=== PATIENT | male | born 1985 | race Two or more races ===

== ENCOUNTER 2024-03-12 14:50 | Outpatient (AMB) | payer OTHER, SELFPAY ==
[2024-03-12 14:58] VITALS: BP 122/72; PULSE 76; O2SAT 97; BMI 36.4
--- NOTE | 2024-03-12 14:58 | MHC.PC.OV ---
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 He states it's been going on for four months. 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 No PCP in years Last office visit/CPE: years Acute issue(s): Fatigue & palpitations. H/o PreDM PMHx: Difficulty concentrating. PreDM SurgHx: Tonsils FHx: Mom: Hypothroidism, Seizure disorder. GF: Diabetes. SocHx: No Cigs, EtOH: None. No drugs PFSH Medical History (Updated 03/12/24 @ 15:55 by Eb Preston MD) Anxiety Palpitations Surgical History (Updated 03/12/24 @ 15:07 by Rhona Cole CMA) S/P tonsillectomy Family History (Updated 03/12/24 @ 15:09 by Rhona Cole CMA) Mother Thyroid disease Father Alcoholism Maternal Grandfather Diabetes Social History Patient Tobacco Use Status: Never used Tobacco e-Cigarette/Vaping Use: Never Used service: No Current occupational status: employed Cognitive needs: No Hearing needs: No Vision needs: No Questionnaire PHQ-9 Over the last 2 weeks, how often have you been bothered by any of the following problems? 1. Little interest or pleasure in doing things: not at all 2. Feeling down, depressed, or hopeless: not at all 3. Trouble falling or staying asleep, or sleeping too much: not at all 4. Feeling tired or having little energy: not at all 5. Poor appetite or overeating: not at all 6. Feeling bad about yourself - or that you are a failure or have let yourself or your family down: not at all 7. Trouble concentrating on things, such as reading the newspaper or watching television: not at all 8. Moving or speaking so slowly that other people could have noticed. Or the opposite - being so fidgety or restless that you have been moving around a lot more than usual: not at all 9. Thoughts that you would be better off or of hurting yourself in some way: not at all Total score: 0 Depression Screening Interpretation: Negative Depression Screening Done: Yes 65880 - PHQ-9 Billing: Yes Source: Developed by Drs. Geraldo Dyson, Aislinn Mcarthur, Fuentes Tipton and colleagues, with an educational jerald from [employer]. Thrive Questionnaire Date Thrive assessed: 03/12/24 I am a: Patient What is your living situation today?: I have a steady place to live Within the past 12 months, did the food you bought not last and you didn't have the money to get more?: Never true Within the past 12 months, did you worry whether your food would run out before you got money to buy more?: Never true Do you have trouble paying for medicines?: No Do you have trouble getting transportation to medical appointments?: No Do you have trouble paying your heating and electricity bill?: No Do you have trouble taking care of your child, family member or friend?: No Do you have trouble with day-to-day activities such as bathing, preparing meals, shopping, managing finances, etc.?: No Are you currently unemployed and looking for a job?: No Are you interested in more education?: No THRIVE Score: 0 AUDIT C Alcohol Use Questionnaire (AUDIT-C) 1. How often do you have a drink containing alcohol?: Never 3. How often do you have six or more drinks on one occasion?: Never Total Score: 0 BROOKE-7 AMB Questionnaire BROOKE-7 Date BROOKE - 7 assessed: 03/12/24 Feeling nervous, anxious, or on edge: 0 = Not at all Not being able to stop or control worryin = Not at all Worrying too much about different things: 0 = Not at all Trouble relaxin = Not at all Being so restless that it is hard to sit still: 0 = Not at all Becoming easily annoyed or irritable: 0 = Not at all Feeling afraid as if something awful might happen: 0 = Not at all Total BROOKE-7 score (0-4 normal; 5-9 mild; 10-14 moderate; 15-21 severe): 0 Source: Developed by Drs. Geraldo Dyson, Aislinn Mcarthur, Fuentes Tipton and colleagues, with an educational jerald from [employer]. BROOKE-7 Assessment Billing BROOKE-7 Assessment Tool: BROOKE-7 Assessment 22261 Review of Systems Const Denies chills, Reports fatigue, Denies fever(s), Denies headache(s) and Denies weakness ENT Denies dizziness and Denies headache(s) Card Denies chest pain, Denies lightheadedness, Denies dyspnea and Denies other (Palpitations) Resp Denies cough, Denies dyspnea, Denies wheezing and Denies other ( shortness of breath) Musc Denies numbness and Denies tingling Neuro Denies dizziness, Denies headache(s), Denies numbness, Denies tingling, Denies paresthesias and Denies weakness Psych Denies anxiety and Denies depression Endo Reports fatigue Aller/Immun Denies wheezing Physical exam (Primary Care) Vital Signs: Last Vital Signs Pulse 76 03/12/24 14:58 BP 122/72 03/12/24 14:58 Pulse Ox 97 03/12/24 14:58 Oxygen Delivery Method Room Air 03/12/24 14:58 BMI result Body Mass Index 36.4 Tobacco/Smoking Status: Tobacco use Status Tobacco use date assessed 03/12/24 03/12/24 15:14 Patient Tobacco Use Status Never used Tobacco 03/12/24 15:14 e-Cigarette/Vaping Use Never Used 03/12/24 15:14 PHQ-9: PHQ-9 Score PHQ-9: Total score 0 03/12/24 15:14 Depression Screening Interpretation: Negative Thrive Assessment: Date of Thrive Assessment Date Thrive assessed 03/12/24 03/12/24 15:14 Const General: no acute distress and well developed Nutritional Appearance: well nourished Orientation/consciousness: patient oriented x3 HENMT Head: Yes normocephalic and Yes atraumatic Eyes General: appearance normal, both eyes and all related structures Pupils: Equal, round and reactive pupils present EOM: EOMs intact bilaterally Resp Effort & Inspection: normal respiratory effort Auscultation: clear to auscultation bilaterally Cardio Rate: regular rate Rhythm: regular rhythm Heart sounds: S1 normal heart sound present, S2 normal heart sound present, no gallops, no murmurs and no rubs Neuro General: patient oriented x3 and gait normal Cranial nerves: Yes Equal, round and reactive pupils present Psych Affect: normal affect Assessment and Plan Assessment & Plan (1) Fatigue: Code(s): R53.83 - Other fatigue Plan: Fatigue?and?daytime?sleepiness?with?difficulty?staying?asleep/un?restful?sleep Referred?to?Sleep?Medicine (2) Herpes exposure: Code(s): Z20.828 - Contact with and (suspected) exposure to other viral communicable diseases Plan: Patient?says?he?was?exposed?to?herpes?last?year Check?labs (3) Palpitations: Code(s): R00.2 - Palpitations Plan: Palpitations?and?poor?sleep EKG: ?Normal?sinus?rhythm,?normal?axis,?normal?intervals,?no?hypertrophy,?no?ST-T-wave?changes.??Normal?EKG Referred?to?Sleep?Medicine Check?labs (4) Sleep apnea: Code(s): G47.30 - Sleep apnea, unspecified Plan: Referred?to?Sleep?Medicine Orders: Orders Complete Blood Count Auto Diff Today Z00.00 - Encounter for general adult medical examination without abnormal findings Lipid Panel Today Z00.00 - Encounter for general adult medical examination without abnormal findings TSH reflex Free T4 Today Z00.00 - Encounter for general adult medical examination without abnormal findings UA and rflx microscopic Today Z00.00 - Encounter for general adult medical examination without abnormal findings HSV I and II,IHC Today Z20.828 - Contact with and (suspected) exposure to other viral communicable diseases HIV Ab/Ag Today R53.83 - Other fatigue, Z11.3 - Encounter for screening for infections with a predominantly sexual mode of transmission Syphilis Screen Today R53.83 - Other fatigue, Z11.3 - Encounter for screening for infections with a predominantly sexual mode of transmission Hepatitis B,C Profile Today R53.83 - Other fatigue, Z11.3 - Encounter for screening for infections with a predominantly sexual mode of transmission Comprehensive [place]. Panel Fast Today Z00.00 - Encounter for general adult medical examination without abnormal findings Microalbumin, Random (w Creat) Today I10 - Essential (primary) hypertension AMB EKG-In Office Today R53.83 - Other fatigue Testosterone, Free/Total Today R53.83 - Other fatigue CT NG by PCR Today R53.83 - Other fatigue, Z11.3 - Encounter for screening for infections with a predominantly sexual mode of transmission Referrals Sleep Medicine Referral G47.30 - Sleep apnea, unspecified, R53.83 - Other fatigue Coding Level of Care Code New Pt Level 3 (39206) Diagnoses Fatigue R53.83 Herpes exposure Z20.828 Palpitations R00.2 Sleep apnea G47.30 Additional Codes BROOKE-7 Assessment Billing - BROOKE-7 Assessment Tool: BROOKE-7 Assessment 44248 ([id number])
== END 2024-03-12 16:38 | disposition home or self-care (01) ==
PROVIDERS: PCP Family Medicine; Visit Provider Family Medicine
DX: R53.83 Other fatigue (principal); Z20.828 Contact with and (suspected) exposure to other viral communicable diseases; R00.2 Palpitations; G47.30 Sleep apnea, unspecified
CPT/HCPCS: 99203

== ENCOUNTER 2024-03-13 11:53 | Outpatient (REF) | payer OTHER, SELFPAY ==
[2024-03-13 14:22] LABS: MANUAL DIFF FLAG NO
[2024-03-13 14:41] LABS: Basophils Percent Auto 0.3 % (0-2); Eosinophils Absolute Auto 0.4 X10*3/uL (0.0-0.4); Eosinophils Percent Auto 6.6 % (0-4); Hematocrit 45.4 % (42.0-52.0); Hemoglobin 15.7 g/dl (14.0-18.0); Imm Gran Abs Auto 0.01 X10*3/uL (0.00-0.03); Imm Gran Pct Auto 0.2 % (0.0-0.4); Lymphocytes Absolute Auto 1.5 X10*3/uL (1.2-4.9); Lymphocytes Percent Auto 26.2 % (20-40); Mean Corpuscular HGB Conc 34.6 g/dl (31.0-36.0); Mean Corpuscular Hemoglobin 30.4 pg (27.0-33.0); Mean Platelet Volume 8.9 fL (9.4-12.4); Monocytes Absolute Auto 0.4 X10*3/uL (0.1-1.2); Monocytes Percent Auto 7.1 % (2-11); Neutrophils Absolute Auto 3.4 x10*3/uL (2.0-8.3); Neutrophils Percent Auto 59.6 % (45-73); Platelet Count 281 X10*3/uL (160-400); Red Blood Count 5.16 X10*6/uL (4.60-5.80); Red Cell Distribution Width 11.9 % (11.0-16.0); White Blood Count 5.8 X10*3/uL (4.8-10.8)
[2024-03-13 14:50] LABS: Appearance Urine Clear; Color Urine Dark Yellow; Glucose Urine UA Negative (Negative); Leukocyte Esterase Urine Negative (Negative); Nitrite Urine Negative (Negative); PH 6.5 (5.0-9.0); Urine Blood Negative (Negative); Urine Ketones Negative (Negative); Urine Protein Negative (Neg-Trace)
[2024-03-13 15:22] LABS: Alanine Aminotransferase 81 U/L (0-40); Albumin Level 4.2 g/dL (3.5-5.0); Alkaline Phosphatase 69 U/L (39-117); Anion Gap 12 (12-20); Aspartate Amino Transferase 33 U/L (5-37); Bilirubin Total 0.5 mg/dL (0.0-1.0); Blood Urea Nitrogen 7 mg/dL (9-16); Calcium 9.4 mg/dL (8.4-10.2); Carbon Dioxide 29 mmol/L (22-29); Chloride 105 mmol/L (96-108); Cholesterol 177 mg/dL (<200); Estimated Glomerular Filt Rate > 60; Glucose Fasting 93 mg/dL (60-99); HDL Cholesterol 50 mg/dL (>40); LDL Cholesterol Calculated 119 mg/dL (<100); Potassium 3.9 mmol/L (3.3-5.1); Sodium 142 mmol/L (135-145); Triglycerides 44 mg/dL (<150)
[2024-03-13 15:26] LABS: TSH reflex Free T4 2.35 uIU/mL (0.32-4.0)
[2024-03-13 15:43] LABS: Creatinine Urine 156.61 mg/dL; Microalbum/Creatinine Ratio Ur 5.1 ug/mg cr (<30)
[2024-03-14 08:05] LABS: HBS Num1 > 1000.00 mIU/mL (0-7.99); HBc Num1 0.19 S/CO (0.00-0.79); HBsAGNum1 0.28 S/CO (0.00-0.99); HIV AB/AG Nonreactive (Nonreactive); HIV Num 1 0.04 S/CO (0.00-0.99); Hepatitis B Core Antibody Nonreactive (Nonreactive); Hepatitis B Surface Antigen Negative (Negative); ~HepC Num1 0.08 S/CO (0.00-0.79); ~Hepatitis B Surface Antibody REACTIVE (Nonreactive); ~Hepatitis C Antibody Nonreactive (Nonreactive)
[2024-03-14 08:22] LABS: Syphilis Screen Nonreactive (Nonreactive)
== END 2024-03-13 11:54 | disposition home or self-care (01) ==
LOC: HO.WFDLDS 11:53
PROVIDERS: Visit Provider Family Medicine
DX: Z00.00 Encounter for general adult medical examination without abnormal findings (principal); I10 Essential (primary) hypertension; R53.83 Other fatigue; Z20.828 Contact with and (suspected) exposure to other viral communicable diseases; Z11.3 Encounter for screening for infections with a predominantly sexual mode of transmission
CPT/HCPCS: 36415; 80053; 80061; 81003; 82043; 82570; 84443; 85025; 86695; 86696; 86704; 86706; 86780; 86803; 87340; 87389

== ENCOUNTER → 2024-03-22 14:48 | Outpatient (AMB) | payer OTHER, SELFPAY ==
--- NOTE | 2024-03-22 13:55 | MHC.PC.OV ---
Intake Visit Reasons: Discuss recent labs/ medication options Intake Note: Patient is scheduled follow up on labs today, would like to talk about liver results, and what to do to feel better, and talk HPV treatment. Allergies No Known Allergies Allergy (Unverified 03/12/24 15:01) Tobacco use date assessed: 03/12/24 Dental Screening Dental Screen Date: 03/12/24 HPI Discuss recent labs/ medication options HPI Details 38 y/o male presents to f/u labs via telemedicine. Labs were drawn 03/13/24. Reviewed labs with pt. Elevated liver enzymes - ALT 81. Triglycerides 44. TC 177. LDL 119. HDL 50. HPI Comments History of Present Illness Details Documentation assistance for Eb Preston MD, was provided by Tavares Garcia, Underwriting Operations Manager on 03/22/2024 at 4:53 PM EST. I, Dr. Preston, have read, observed, and verified documentation. [facility] Medical History (Updated 03/22/24 @ 16:20 by Tavares Garcia) Anxiety Palpitations Surgical History (Updated 03/12/24 @ 15:07 by Rhona Cole [facility]) S/P tonsillectomy Family History (Updated 03/12/24 @ 15:09 by Rhona Cole [facility]) Mother Thyroid disease Father Alcoholism Maternal Grandfather Diabetes Social History Patient Tobacco Use Status: Never used Tobacco e-Cigarette/Vaping Use: Never Used service: No Current occupational status: employed Cognitive needs: No Hearing needs: No Vision needs: No Questionnaire Thrive Questionnaire Date Thrive assessed: 03/12/24 BROOKE-7 AMB Questionnaire BROOKE-7 Date BROOKE - 7 assessed: 03/12/24 Source: Developed by Drs. Geraldo Dyson, Aislinn Mcarthur, Fuentes Tipton and colleagues, with an educational jerald from [employer] Review of Systems Const Denies chills, Denies fatigue, Denies fever(s), Denies headache(s) and Denies weakness ENT Denies dizziness and Denies headache(s) Card Denies dyspnea Resp Denies cough, Denies dyspnea, Denies wheezing and Denies other (shortness of breath) Musc Denies numbness and Denies tingling Neuro Denies dizziness, Denies headache(s), Denies numbness, Denies tingling and Denies weakness Psych Denies anxiety and Denies depression Endo Denies fatigue Aller/Immun Denies wheezing Physical exam (Primary Care) Tobacco/Smoking Status: Tobacco use Status Tobacco use date assessed 03/12/24 03/22/24 13:55 Patient Tobacco Use Status Never used Tobacco 03/22/24 13:55 e-Cigarette/Vaping Use Never Used 03/22/24 13:55 Thrive Assessment: Date of Thrive Assessment Date Thrive assessed 03/12/24 03/22/24 13:55 Telehealth Telehealth Telehealth Platform: Telephone Location of provider rendering services: practice address Location of patient: address on file Patient Identification confirmed using: Name, : Yes Telehealth method: voice only Patient verbally consented to treatment: Yes Patient verbally consented to billing insurance company: Yes Patient informed of any privacy concerns related to visit: Yes Minutes spent on Phone/Video with Pt.: 11 Assessment and Plan Assessment & Plan (1) Elevated liver enzymes: Code(s): R74.8 - Abnormal levels of other serum enzymes Plan: Elevated?ALT Likely?fatty?liver?disorder Advised?weight?loss?and?he?is?already?been?working?on?this. Advised?good?hydration Will?recheck?liver?enzymes?prior?to?next?visit?and?if?they?are?the?same?or?higher,?will?check?an?ultrasound (2) Hypercholesterolemia: Code(s): E78.00 - Pure hypercholesterolemia, unspecified Plan: Mildly?elevated?LDL?cholesterol?and?he?is?working?on?weight?loss Also?encouraged?a?diet?lower?in?saturated?fats?and?cholesterol Will?recheck?these?and?advise?patient?at?next?visit (3) Herpes exposure: Code(s): Z20.828 - Contact with and (suspected) exposure to other viral communicable diseases Plan: Patient?had?noted?an?HSV?exposure?and?testing?confirms?HSV?1?and?2 He?is?sexually?active?and?would?like?to?use?a?suppressive?the?strategy Valacyclovir?is?ordered Plan He?will?return?in?3?months?to?follow-up?elevated?liver?enzymes,?hyperlipidemia?and?weight. Orders: Orders Comprehensive [place]. Panel Fast Today R74.8 - Abnormal levels of other serum enzymes, Z00.00 - Encounter for general adult medical examination without abnormal findings Lipid Panel Today E78.00 - Pure hypercholesterolemia, unspecified, Z00.00 - Encounter for general adult medical examination without abnormal findings Medications: New valacyclovir 500 mg PO DAILY 90 days 90 tabs 3RF Coding Level of Care Code Tele Est Pt Level 2 (64422) Diagnoses Elevated liver enzymes R74.8 Hypercholesterolemia E78.00 Herpes exposure Z20.828
== END ==
PROVIDERS: PCP Family Medicine; Visit Provider Family Medicine
DX: R74.8 Abnormal levels of other serum enzymes (principal); E78.00 Pure hypercholesterolemia, unspecified; Z20.828 Contact with and (suspected) exposure to other viral communicable diseases
CPT/HCPCS: 99212

== ENCOUNTER 2024-07-05 11:47 | Outpatient (REF) | payer OTHER, SELFPAY ==
[2024-07-05 14:49] LABS: Alanine Aminotransferase 48 U/L (0-40); Albumin Level 4.5 g/dL (3.5-5.0); Alkaline Phosphatase 65 U/L (39-117); Anion Gap 11 (12-20); Aspartate Amino Transferase 30 U/L (5-37); Bilirubin Total 0.6 mg/dL (0.0-1.0); Blood Urea Nitrogen 7 mg/dL (9-16); Calcium 9.7 mg/dL (8.4-10.2); Carbon Dioxide 29 mmol/L (22-29); Chloride 104 mmol/L (96-108); Cholesterol 171 mg/dL (<200); Estimated Glomerular Filt Rate > 60; Glucose Fasting 95 mg/dL (60-99); HDL Cholesterol 47 mg/dL (>40); LDL Cholesterol Calculated 112 mg/dL (<100); Potassium 3.8 mmol/L (3.3-5.1); Sodium 140 mmol/L (135-145); Total Protein 7.2 g/dL (6.5-8.0); Triglycerides 62 mg/dL (<150)
[2024-07-11 01:29] LABS: Testosterone, Free 73.7 pg/mL (35.0-155.0); Testosterone, Total 491 ng/dL (250-1100)
== END 2024-07-05 11:48 | disposition home or self-care (01) ==
LOC: HO.WFDLDS 11:47
PROVIDERS: Visit Provider Family Medicine
DX: Z00.00 Encounter for general adult medical examination without abnormal findings (principal); R53.83 Other fatigue; R74.8 Abnormal levels of other serum enzymes; E78.00 Pure hypercholesterolemia, unspecified
CPT/HCPCS: 36415; 80053; 80061; 84402; 84403

== ENCOUNTER 2024-07-16 12:03 | Outpatient (AMB) | payer OTHER, SELFPAY ==
[2024-07-16 12:08] VITALS: BP 118/66; PULSE 71; RESP 14; O2SAT 98; BMI 35.3
--- NOTE | 2024-07-16 12:08 | MHC.PC.OV ---
Vital Signs 07/16/24 12:08 Height 5 ft 5 in Weight 212 lb 4 oz BMI 35.3 BP 118/66 Blood Pressure Location Rt brachial Position Sitting Respiration 14 Pulse 71 Pulse Source Pulse Oximeter Pulse Oximetry (%) 98 Oxygen Delivery Method Room Air Intake Visit Reasons: Ext exam f/u labs and health maint Intake Note: patient here for physical Allergies No Known Allergies Allergy (Verified 07/16/24 12:09) Medication List - Last Reconciled 07/16/24 by DEVI Teixeira No Known Home Meds Tobacco use date assessed: 03/12/24 Dental Screening Dental Screen Date: 07/16/24 Did you have a dental visit in the last 12 months?: No Did you have a dental problem in the last 6 months where you did not have access to dental care?: No Was dental information given to patient?: No HPI HPI Comments History of Present Illness Details 39 y/o M with obesity, HLD, HSV1&2, fatty liver, BROOKE, MDD 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 Reports that when he takes them he feels great. One week after stopping he does not. He also reports a high buy-oa-mkutcj cost for these supplements and wonders if they can be prescribed. Has never had a Urology or endocrinology workup for low testosterone. He reports that he did a home blood test and his testosterone levels were low. Since last office visit, he has adjusted his lifestyle, diet and exercise, intentional weight loss. In regards to his mood, feels like it is stable, he has not counseling in the past, not currently enrolled and does not feel like he needs any medications or counseling. RTO 1 year for CPE, sooner as needed. [facility] Medical History (Updated 07/16/24 @ 14:45 by DEVI Teixeira) Anxiety Palpitations Surgical History (Updated 03/12/24 @ 15:07 by Rhona Cole [facility]) S/P tonsillectomy Family History (Updated 07/16/24 @ 12:10 by Sal Mehta MA) Mother Thyroid disease Father Alcoholism Substance abuse Maternal Grandfather Diabetes Social History (Updated 07/16/24 @ 12:13 by Sal Mehta MA) Household Members: None Both parents involved: No Caregiver staying overnight: No Housing: Apartment Are you a primary resident care coordinator to a significant other at home: No Do you presently have visiting nurse or other home services: No 75 years or older and lives alone: No Alcohol intake: never Patient Tobacco Use Status: Never used Tobacco e-Cigarette/Vaping Use: Never Used service: No Current occupational status: employed Cognitive needs: No Hearing needs: No Vision needs: No Questionnaire PHQ-9 Over the last 2 weeks, how often have you been bothered by any of the following problems? 1. Little interest or pleasure in doing things: not at all 2. Feeling down, depressed, or hopeless: not at all 3. Trouble falling or staying asleep, or sleeping too much: nearly every day 4. Feeling tired or having little energy: nearly every day 5. Poor appetite or overeating: not at all 6. Feeling bad about yourself - or that you are a failure or have let yourself or your family down: not at all 7. Trouble concentrating on things, such as reading the newspaper or watching television: nearly every day 8. Moving or speaking so slowly that other people could have noticed. Or the opposite - being so fidgety or restless that you have been moving around a lot more than usual: not at all 9. Thoughts that you would be better off or of hurting yourself in some way: not at all Total score: 9 Depression Screening Interpretation: Positive Depression Screening Follow-up: Existing condition Depression Screening Done: Yes 07116 - PHQ-9 Billing: Yes Source: Developed by Drs. Geraldo Dyson, Aislinn Mcarthur, Fuentes Tipton and colleagues, with an educational jerald from [employer]. Thrive Questionnaire Date Thrive assessed: 07/16/24 I am a: Patient What is your living situation today?: I have a steady place to live Within the past 12 months, did the food you bought not last and you didn't have the money to get more?: Never true Within the past 12 months, did you worry whether your food would run out before you got money to buy more?: Never true Do you have trouble paying for medicines?: No Do you have trouble getting transportation to medical appointments?: No Do you have trouble paying your heating and electricity bill?: No Do you have trouble taking care of your child, family member or friend?: No Do you have trouble with day-to-day activities such as bathing, preparing meals, shopping, managing finances, etc.?: No Are you currently unemployed and looking for a job?: No Are you interested in more education?: No Currently or been in a relationship where the following occur: No concerns reported THRIVE Score: 0 AUDIT C Alcohol Use Questionnaire (AUDIT-C) 1. How often do you have a drink containing alcohol?: Never 3. How often do you have six or more drinks on one occasion?: Never Total Score: 0 Score Reviewed/Action Taken: Yes BROOKE-7 AMB Questionnaire BROOKE-7 Date BROOKE - 7 assessed: 07/16/24 Feeling nervous, anxious, or on edge: 1 = Several days Not being able to stop or control worryin = More than half the days Worrying too much about different things: 3 = Nearly every day Trouble relaxin = Several days Being so restless that it is hard to sit still: 1 = Several days Becoming easily annoyed or irritable: 0 = Not at all Feeling afraid as if something awful might happen: 1 = Several days Total BROOKE-7 score (0-4 normal; 5-9 mild; 10-14 moderate; 15-21 severe): 9 Source: Developed by Drs. Geraldo Dyson, Aislinn Mcarthur, Fuentes Tipton and colleagues, with an educational jerald from [employer]. BROOKE-7 Assessment Billing BROOKE-7 Assessment Tool: BROOKE-7 Assessment 67884 Review of Systems Const Details: Constitutional: Denies fever. Skin: Denies rash. Eye: Denies eye pain. ENMT: Denies sore throat and nasal congestion. Respiratory: Denies shortness of breath and cough. Gastrointestinal: Denies nausea, vomiting or abdominal pain. Cardiovascular: Denies chest pain and syncope. Genitourinary: Denies dysuria. Musculoskeletal: Denies back pain and extremity pain. Neurologic: Denies headaches, confusion, and weakness. Psychiatric: Denies suicidal thoughts and substance abuse. Allergy/ Immunologic: Denies impaired immunity. Physical exam (Primary Care) Vital Signs: Last Vital Signs Pulse 71 07/16/24 12:08 Resp 14 07/16/24 12:08 BP 118/66 07/16/24 12:08 Pulse Ox 98 07/16/24 12:08 Oxygen Delivery Method Room Air 07/16/24 12:08 BMI result Body Mass Index 35.3 BMI Assessment/Plan discussion: High BMI High, discussed plan: lifestyle Tobacco/Smoking Status: Tobacco use Status Tobacco use date assessed 03/12/24 07/16/24 12:11 Patient Tobacco Use Status Never used Tobacco 07/16/24 12:13 e-Cigarette/Vaping Use Never Used 07/16/24 12:13 PHQ-9: PHQ-9 Score PHQ-9: Total score 9 07/16/24 14:36 Depression Screening Interpretation: Positive Depression Screening Follow-up: Existing condition Thrive Assessment: Date of Thrive Assessment Date Thrive assessed 07/16/24 07/16/24 12:16 Currently or been in a relationship where the following occur: No concerns reported Const Other: General: Well developed, well nourished, in no acute distress. Appears stated age. Head: Normocephalic, atraumatic. Eyes: Pupils are equal, round and reactive to light and accommodation. Conjunctivae are clear. Vision grossly normal. Ears: TMs clear AU, EACS WNL Nose: Patent, without discharge. Mouth: There are no ulcers or lesions noted. No inflammation, no post nasal drip, no plaques nor exudates. Neck: Supple, no adenopathy or thyromegaly. Lungs: Clear to auscultation bilaterally. No rales, rhonchi or wheeze noted. Good air flow in all linares. Heart: Regular rate and rhythm. No murmurs, click, rubs or gallops are noted. Abdomen: Bowel sounds present in all quadrants. The abdomen is soft, nontender, with no masses or organomegaly noted. No hernias are noted. Musculoskeletal: Joints are nontender, without swelling, redness, or effusions. Range of motion is observed to be normal. Pulses: Peripheral pulses are equal and palpable bilaterally. Extremities: No clubbing, cyanosis nor edema is noted. Neurologic: Gait and station normal. Cranial Nerves 2-12 intact. Motor strength grossly symmetrical and intact. No sensory loss. Balance normal. Skin: No rashes, ulcers, or lesions noted. Turgor is good. Skin color is good. Hair and nails are without abnormalities. Psych: Normal eye contact, affect and mood appropriate, and normal interactions. Patient is alert and appropriate to context. Assessment and Plan Assessment & Plan (1) Encounter for general adult medical examination without abnormal findings: Code(s): Z00.00 - Encounter for general adult medical examination without abnormal findings (2) Fatigue: Code(s): R53.83 - Other fatigue Qualifiers: Fatigue type: chronic, unspecified Qualified Code(s): R53.82 - Chronic fatigue, unspecified (3) Low testosterone in male: Comment: subjective Code(s): R79.89 - Other specified abnormal findings of blood chemistry (4) MDD (major depressive disorder), recurrent episode: Code(s): F33.9 - Major depressive disorder, recurrent, unspecified Qualifiers: Major depression episode severity: mild Qualified Code(s): F33.0 - Major depressive disorder, recurrent, mild (5) BROOKE (generalized anxiety disorder): Code(s): F41.1 - Generalized anxiety disorder (6) Fatty liver: Code(s): K76.0 - Fatty (change of) liver, not elsewhere classified (7) Elevated liver enzymes: Code(s): R74.8 - Abnormal levels of other serum enzymes (8) Hypercholesterolemia: Code(s): E78.00 - Pure hypercholesterolemia, unspecified (9) Herpes simplex: Comment: 1&2 06/2024 labs, was on suppressive acylovir but stopped taking Code(s): B00.9 - Herpesviral infection, unspecified (10) Severe obesity (BMI 35.0-39.9) with comorbidity: Comment: with HLD and fatty liver bmi > 35 Code(s): E66.01 - Morbid (severe) obesity due to excess calories Orders: Referrals Urology Referral R53.83 - Other fatigue, R79.89 - Other specified abnormal findings of blood chemistry Patient Instructions: Health screenings for men ages 40 to 64 You should visit your health care provider regularly, even if you feel healthy. The purpose of these visits is to: Screen for medical issues Assess your risk for future medical problems Encourage a healthy lifestyle Update vaccinations and other preventive care services Help you get to know your provider in case of an illness Information Even if you feel fine, you should still see your provider for regular checkups. These visits can help you avoid problems in the future. For example, the only way to find out if you have high blood pressure is to have it checked regularly. High blood sugar and high cholesterol level also may not have any symptoms in the early stages. Simple blood tests can check for these conditions. There are specific times when you should see your provider or receive specific health screenings. The [place] Preventive Services Task Force publishes a list of recommended screenings. Below are screening guidelines for men ages 40 to 64. BLOOD PRESSURE SCREENING Have your blood pressure checked at least once every year. Watch for blood pressure screenings in your area. Ask your provider if you can stop in to have your blood pressure checked. Ask your provider if you need your blood pressure checked more often if: You have diabetes, heart disease, kidney problems, or are overweight or have certain other health conditions You have a first-degree relative with high blood pressure You are Black Your blood pressure top number is from 120 to 129 mm Hg, or the bottom number is from 70 to 79 mm Hg If the top number is 130 mm Hg or greater or the bottom number is 80 mm Hg or greater, this is considered stage 1 hypertension. Schedule an appointment with your provider to learn how you can lower your blood pressure. Effects of age on blood pressure CHOLESTEROL SCREENING Cholesterol screening should begin at age 35 for men with no known risk factors for coronary heart disease. Repeat cholesterol screening should take place: Every 5 years for men with normal cholesterol levels More often if changes occur in lifestyle (including weight gain and diet) More often if you have diabetes, heart disease, kidney problems, or certain other conditions COLORECTAL CANCER SCREENING If you are under age 45, talk to your provider about getting screened. You may need to be screened if you have a strong family history of colon cancer or polyps. Screening may also be considered if you have risk factors such as a history of inflammatory bowel disease or polyps. If you are age 45 to 75, you should be screened for colorectal cancer. There are several screening tests available: A stool-based fecal occult blood (gFOBT) or fecal immunochemical test (FIT) every year A stool sDNA test every 1 to 3 years Flexible sigmoidoscopy every 5 years or every 10 years with stool testing FIT done every year CT colonography (virtual colonoscopy) every 5 years Colonoscopy every 10 years You may need a colonoscopy more often if you have risk factors for colorectal cancer, such as: Ulcerative colitis A personal or family history of colorectal cancer A history of growths in your colon called adenomatous polyps DENTAL EXAM Go to the dentist once or twice every year for an exam and cleaning. Your dentist will evaluate if you have a need for more frequent visits. DIABETES SCREENING All adults who do not have risk factors for diabetes should be screened starting at age 35 and repeated every 3 years. If you have other risk factors for diabetes, such as a first degree relative with diabetes, overweight or obesity, high blood pressure, prediabetes, or a history of heart disease, you may be tested more often. If you are overweight and have other risk factors, such as high blood pressure and are planning to become , screening is recommended. EYE EXAM Have an eye exam every 2 to 4 years ages 40 to 54 and every 1 to 3 years ages 55 to 64. Your provider may recommend more frequent eye exams if you have vision problems or glaucoma risk. Have an eye exam that includes an examination of your retina (back of your eye) at least every year if you have diabetes. IMMUNIZATIONS Commonly needed vaccines include: Flu shot: get one every year COVID-19 vaccine: ask your provider what is best for you Tetanus-diphtheria and acellular pertussis (Tdap) vaccine: have as one of your tetanus-diphtheria vaccines if you did not receive it as an adolescent Tetanus-diphtheria: have a booster (or Tdap) every 10 years Varicella vaccine: receive 2 doses if you never had chickenpox or the varicella vaccine and were born in 1979 or after Hepatitis B vaccine: receive 2, 3, or 4 doses, depending on your exact circumstances, if you did not receive these as a child or adolescent, until age 59 Shingles (herpes zoster) vaccine: at or after age 50 Ask your provider if you should receive other immunizations, especially if you have certain medical conditions, such as diabetes or are at increased risk for some diseases such as pneumonia. INFECTIOUS DISEASE SCREENING Screening for hepatitis C: all adults ages 18 to 79 should get a one-time test for hepatitis C. Screening for human immunodeficiency virus (HIV): all people ages 15 to 65 should get a one-time test for HIV. Depending on your lifestyle and medical history, you may need to be screened for infections such as syphilis, chlamydia, and other infections. LUNG CANCER SCREENING You should have an annual screening for lung cancer with low-dose computed tomography (LDCT) if: You are age 50 to 80 years AND You have a 20 pack-year smoking history AND You currently smoke or have quit within the past 15 years OSTEOPOROSIS SCREENING If you are age 50 to 64 and have risk factors for osteoporosis, you should discuss screening with your provider. Risk factors can include long-term steroid use, low body weight, smoking, heavy alcohol use, having a fracture after age 50, or a family history of hip fracture or osteoporosis. Osteoporosis PHYSICAL EXAM All adults should visit their provider from time to time, even if they are healthy. The purpose of these visits is to: Screen for diseases Assess risk of future medical problems Encourage a healthy lifestyle Update vaccinations and other preventive care services Maintain a relationship with a provider in case of an illness Your height, weight, and body mass index (BMI) should be checked at every exam. During your exam, your provider may ask you about: Depression and anxiety Diet and exercise Alcohol and tobacco use Safety, such as use of seat belts and smoke detectors Your medicines and risk for interactions PROSTATE CANCER SCREENING If you're 55 through 69 years old, before having the test, talk to your provider about the pros and cons of having a PSA test. Ask about: Whether screening decreases your chance of dying from prostate cancer. Whether there is any harm from prostate cancer screening, such as side effects from testing or overtreatment of cancer when discovered. Whether you have a higher risk of prostate cancer than others. If you are age 55 or younger, screening is not generally recommended. You should talk with your provider about if you have a higher risk for prostate cancer. Risk factors include: Having a family history of prostate cancer (especially a brother or father) Being If you choose to be tested, the PSA blood test is repeated over time (yearly or less often), though the best frequency is not known. Prostate examinations are no longer routinely done on men with no symptoms. Prostate cancer SKIN EXAM Your provider may check your skin for signs of skin cancer, especially if you're at high risk. People at high risk include those who have had skin cancer before, have close relatives with skin cancer, or have a weakened immune system. TESTICULAR EXAM The [place] Preventive Services Task Force (USPSTF) now recommends against performing testicular self-exams. Doing testicular self-exams has been shown to have little to no benefit. Review Flu Vaccine not done: patient reason Declined TDap/Td: 07/16/24 Coding Level of Care Code Est Pt Prev Care 18-39y(10637) Diagnoses Encounter for general adult medical examination without abnormal findings Z00.00 Chronic fatigue R53.82 Fatigue type: chronic, unspecified Low testosterone in male R79.89 Mild episode of recurrent major depressive disorder F33.0 Major depression episode severity: mild BROOKE (generalized anxiety disorder) F41.1 Fatty liver K76.0 Elevated liver enzymes R74.8 Hypercholesterolemia E78.00 Herpes simplex B00.9 Severe obesity (BMI 35.0-39.9) with comorbidity E66.01 Additional Codes BROOKE-7 Assessment Billing - BROOKE-7 Assessment Tool: BROOKE-7 Assessment 42343 ([id number])
== END 2024-07-16 12:39 | disposition home or self-care (01) ==
PROVIDERS: PCP Family Medicine; Visit Provider Nurse Practitioner Family
DX: Z00.00 Encounter for general adult medical examination without abnormal findings (principal); F33.0 Major depressive disorder, recurrent, mild; E66.01 Morbid (severe) obesity due to excess calories; Z68.35 Body mass index [BMI] 35.0-35.9, adult; R53.82 Chronic fatigue, unspecified; R79.89 Other specified abnormal findings of blood chemistry; F41.1 Generalized anxiety disorder; K76.0 Fatty (change of) liver, not elsewhere classified; R74.8 Abnormal levels of other serum enzymes; E78.00 Pure hypercholesterolemia, unspecified; B00.9 Herpesviral infection, unspecified

== ENCOUNTER → 2024-07-16 12:03 | Outpatient (BNVA) | payer OTHER, SELFPAY | PROVIDERS: PCP Family Medicine; Visit Provider Nurse Practitioner Family | DX: Z00.01 Encounter for general adult medical examination with abnormal findings (principal); R79.89 Other specified abnormal findings of blood chemistry; F33.0 Major depressive disorder, recurrent, mild; F41.1 Generalized anxiety disorder; K76.0 Fatty (change of) liver, not elsewhere classified; R74.8 Abnormal levels of other serum enzymes; E78.00 Pure hypercholesterolemia, unspecified; B00.9 Herpesviral infection, unspecified; E66.01 Morbid (severe) obesity due to excess calories | CPT/HCPCS: 96127; 99395 ==

== ENCOUNTER 2025-01-24 11:46 | Outpatient (AMB) | payer OTHER, SELFPAY ==
--- NOTE | 2025-01-24 12:12 | A.OFFPC_ITS ---
Vital Signs 01/24/25 12:13 Height 5 ft 5 in Weight 219 lb 6 oz BMI 36.5 BP 110/70 Blood Pressure Location Lt brachial Position Sitting Respiration 12 Pulse 72 Pulse Source Pulse Oximeter Temp 98.7 F Temp Source Oral Pulse Oximetry (%) 99 Oxygen Delivery Method Room Air Intake Visit Reasons: F/u visit /Weight Check Intake Note: patient is here for weight mngt Medical Professionals Required: No Allergies No Known Allergies Allergy (Verified 01/24/25 12:13) Medication List - Last Reconciled 01/24/25 by Eb Preston MD No Known Home Meds Tobacco use date assessed: 03/12/24 Dental Screening Dental Screen Date: 07/16/24 HPI F/u visit /Weight Check HPI Details 39 y/o male presents to f/u obesity. Weight today 219lb, BMI 36.5, increased from June. He notes he has started working out again at the gym. Reports daytime fatigue/sleepiness. [facility] Medical History (Updated 01/24/25 @ 12:26 by Tavares Garcia) Anxiety Palpitations Surgical History (Updated 03/12/24 @ 15:07 by Rhona Cole CMA) S/P tonsillectomy Family History (Updated 07/16/24 @ 12:10 by Sal Mehta MA) Mother Thyroid disease Father Alcoholism Substance abuse Maternal Grandfather Diabetes Social History (Updated 07/16/24 @ 12:13 by Sal Mehta MA) Household Members: None Both parents involved: No Caregiver staying overnight: No Housing: Apartment Are you a primary care director rn to a significant other at home: No Do you presently have visiting nurse or other home services: No 75 years or older and lives alone: No Alcohol intake: never Patient Tobacco Use Status: Never used Tobacco e-Cigarette/Vaping Use: Never Used service: No Current occupational status: employed Cognitive needs: No Hearing needs: No Vision needs: No Questionnaire PHQ-9 Over the last 2 weeks, how often have you been bothered by any of the following problems? 1. Little interest or pleasure in doing things: several days 2. Feeling down, depressed, or hopeless: several days 3. Trouble falling or staying asleep, or sleeping too much: several days 4. Feeling tired or having little energy: several days 5. Poor appetite or overeating: nearly every day 6. Feeling bad about yourself - or that you are a failure or have let yourself or your family down: several days 7. Trouble concentrating on things, such as reading the newspaper or watching television: nearly every day 8. Moving or speaking so slowly that other people could have noticed. Or the opposite - being so fidgety or restless that you have been moving around a lot more than usual: not at all 9. Thoughts that you would be better off or of hurting yourself in some way: not at all Total score: 11 Source: Developed by Drs. Geraldo Dyson, Aislinn Mcarthur, Fuentes Tipton and colleagues, with an educational jerald from [employer]. Thrive Questionnaire Date Thrive assessed: 07/16/24 I am a: Patient What is your living situation today?: I choose not to answer this question Within the past 12 months, did the food you bought not last and you didn't have the money to get more?: I choose not to answer this question Within the past 12 months, did you worry whether your food would run out before you got money to buy more?: I choose not to answer this question Do you have trouble paying for medicines?: I choose not to answer this question Do you have trouble getting transportation to medical appointments?: I choose not to answer this question Do you have trouble paying your heating and electricity bill?: I choose not to answer this question Do you have trouble taking care of your child, family member or friend?: I choose not to answer this question Do you have trouble with day-to-day activities such as bathing, preparing meals, shopping, managing finances, etc.?: I choose not to answer this question Are you currently unemployed and looking for a job?: I choose not to answer this question Are you interested in more education?: I choose not to answer this question Please select the resources that you would like help with: None Currently or been in a relationship where the following occur: I choose not to answer THRIVE Score: 0 AUDIT C Alcohol Use Questionnaire (AUDIT-C) 1. How often do you have a drink containing alcohol?: Never Total Score: 0 BROOKE-7 AMB Questionnaire BROOKE-7 Date BROOKE - 7 assessed: 07/16/24 Feeling nervous, anxious, or on edge: 3 = Nearly every day Not being able to stop or control worryin = Nearly every day Worrying too much about different things: 3 = Nearly every day Trouble relaxin = Nearly every day Being so restless that it is hard to sit still: 1 = Several days Becoming easily annoyed or irritable: 3 = Nearly every day Feeling afraid as if something awful might happen: 0 = Not at all Total BROOKE-7 score (0-4 normal; 5-9 mild; 10-14 moderate; 15-21 severe): 16 Source: Developed by Drs. Geraldo Dyson, Aislinn Mcarthur, Fuentes Tipton and colleagues, with an educational jerald from [employer]. Review of Systems Const Denies chills, Denies fatigue, Denies fever(s), Denies headache(s) and Denies weakness ENT Denies dizziness and Denies headache(s) Card Denies dyspnea Resp Denies cough, Denies dyspnea, Denies wheezing and Denies other (shortness of breath) Musc Denies numbness and Denies tingling Neuro Denies dizziness, Denies headache(s), Denies numbness, Denies tingling and Denies weakness Psych Denies anxiety and Denies depression Endo Denies fatigue Aller/Immun Denies wheezing Physical exam (Primary Care) Vital Signs: Last Vital Signs Temp 98.7 F 01/24/25 12:13 Pulse 72 01/24/25 12:13 Resp 12 01/24/25 12:13 BP 110/70 01/24/25 12:13 Pulse Ox 99 01/24/25 12:13 Oxygen Delivery Method Room Air 01/24/25 12:13 BMI result Body Mass Index 36.5 Tobacco/Smoking Status: Tobacco use Status Tobacco use date assessed 03/12/24 01/24/25 12:16 Patient Tobacco Use Status Never used Tobacco 01/24/25 12:16 e-Cigarette/Vaping Use Never Used 01/24/25 12:16 PHQ-9: PHQ-9 Score PHQ-9: Total score 11 01/24/25 12:16 Thrive Assessment: Date of Thrive Assessment Date Thrive assessed 07/16/24 01/24/25 12:16 Currently or been in a relationship where the following occur: I choose not to answer Const General: well developed; No acute distress Nutritional Appearance: obese Orientation/consciousness: patient oriented x3 HENMT Head: Yes normocephalic and Yes atraumatic Eyes General: appearance normal, both eyes and all related structures Pupils: Equal, round and reactive pupils present EOM: EOMs intact bilaterally Resp Effort & Inspection: normal respiratory effort Neuro General: patient oriented x3 and gait normal Cranial nerves: Yes Equal, round and reactive pupils present Psych Affect: normal affect Coding Level of Care Code Est Pt Level 4 (95384) Diagnoses Severe obesity (BMI 35.0-39.9) with comorbidity E66.01 Hypersomnia G47.10 Palpitations R00.2 Assessment & Plan Assessment & Plan (1) Severe obesity (BMI 35.0-39.9) with comorbidity: Comment: with HLD and fatty liver bmi > 35 Code(s): E66.01 - Morbid (severe) obesity due to excess calories Category: Medical Plan: Patient?is?interested?in?GLP?1?medication?for?weight?loss. Advised?him?to?contact?his?insurance?company?to?see?what?they?may?cover. Patient?has?hypersomnia?and?may?have?sleep?apnea?which?may?also indicate?G?LP?1?medication?use. Checking?lab?work?and?we?will?follow-up?in?a?month (2) Hypersomnia: Code(s): G47.10 - Hypersomnia, unspecified Category: Medical Plan: Referred?to?Sleep?Medicine (3) Palpitations: Code(s): R00.2 - Palpitations Category: Medical Plan: Ongoing?palpitations Previous?EKG?was?fine Check?Holter?monitor?test Check?labs Orders: Orders Comprehensive [place]. Panel Fast Today Z00.00 - Encounter for general adult medical examination without abnormal findings Complete Blood Count Auto Diff Today Z00.00 - Encounter for general adult medical examination without abnormal findings Microalbumin, Random (w Creat) Today I10 - Essential (primary) hypertension Lipid Panel Today Z00.00 - Encounter for general adult medical examination without abnormal findings Hemoglobin A1c Today R73.01 - Impaired fasting glucose TSH reflex Free T4 Today Z00.00 - Encounter for general adult medical examination without abnormal findings UA CC w/rflx Micro + Cult Today Z00.00 - Encounter for general adult medical examination without abnormal findings ECG holter monitor 48 hour Today R00.2 - Palpitations Referrals Sleep Medicine Referral G47.10 - Hypersomnia, unspecified, G47.30 - Sleep apnea, unspecified, R53.82 - Chronic fatigue, unspecified
[2025-01-24 12:13] VITALS: BP 110/70; PULSE 72; RESP 12; TEMP 37.1; O2SAT 99; BMI 36.5
== END 2025-01-24 12:36 | disposition home or self-care (01) ==
LOC: HO.HMCFM 11:47
PROVIDERS: PCP Family Medicine; Visit Provider Family Medicine
DX: G47.10 Hypersomnia, unspecified (principal); R00.2 Palpitations; E66.01 Morbid (severe) obesity due to excess calories; Z68.36 Body mass index [BMI] 36.0-36.9, adult

== ENCOUNTER → 2025-01-24 11:46 | Outpatient (BNVA) | payer OTHER, SELFPAY | PROVIDERS: PCP Family Medicine; Visit Provider Family Medicine | DX: E66.01 Morbid (severe) obesity due to excess calories (principal); Z68.36 Body mass index [BMI] 36.0-36.9, adult; G47.10 Hypersomnia, unspecified; R00.2 Palpitations; Z71.3 Dietary counseling and surveillance | CPT/HCPCS: 99212 ==

== ENCOUNTER → 2025-02-13 12:41 | Outpatient (REF) | payer OTHER, SELFPAY | LOC: HO.CARD 12:41 | PROVIDERS: PCP Family Medicine; Visit Provider Family Medicine | DX: R00.2 Palpitations (principal) | CPT/HCPCS: 93225 ==

== ENCOUNTER 2025-03-04 09:08 | Outpatient (REF) | payer OTHER, SELFPAY ==
[2025-03-04 11:19] LABS: MANUAL DIFF FLAG NO
[2025-03-04 11:22] LABS: Basophils Percent Auto 0.4 % (0-2); Eosinophils Absolute Auto 0.1 X10*3/uL (0.0-0.4); Eosinophils Percent Auto 2.9 % (0-4); Hematocrit 43.7 % (42.0-52.0); Hemoglobin 14.8 g/dl (14.0-18.0); Imm Gran Abs Auto 0.02 X10*3/uL (0.00-0.03); Imm Gran Pct Auto 0.4 % (0.0-0.4); Lymphocytes Absolute Auto 1.8 X10*3/uL (1.2-4.9); Lymphocytes Percent Auto 37.8 % (20-40); Mean Corpuscular HGB Conc 33.9 g/dl (31.0-36.0); Mean Corpuscular Hemoglobin 29.9 pg (27.0-33.0); Mean Corpuscular Volume 88.3 fL (80.0-98.0); Mean Platelet Volume 9.1 fL (9.4-12.4); Monocytes Absolute Auto 0.5 X10*3/uL (0.1-1.2); Monocytes Percent Auto 10.9 % (2-11); Neutrophils Absolute Auto 2.3 x10*3/uL (2.0-8.3); Neutrophils Percent Auto 47.6 % (45-73); Platelet Count 301 X10*3/uL (160-400); Red Blood Count 4.95 X10*6/uL (4.60-5.80); Red Cell Distribution Width 11.9 % (11.0-16.0); White Blood Count 4.8 X10*3/uL (4.8-10.8)
[2025-03-04 11:48] LABS: Estimated Average Glucose 105 mg/dL; Hemoglobin A1C 134.9705 umol/L; Hemoglobin A1c % 5.3 % (<6.0); Total Hemoglobin (HGBA1C) 3908.0221 umol/L
[2025-03-04 12:57] LABS: Alanine Aminotransferase 31 U/L (0-40); Albumin Level 4.3 g/dL (3.5-5.0); Alkaline Phosphatase 63 U/L (39-117); Anion Gap 12 (12-20); Aspartate Amino Transferase 31 U/L (5-37); Bilirubin Total 0.4 mg/dL (0.0-1.0); Blood Urea Nitrogen 9 mg/dL (9-16); Calcium 9.3 mg/dL (8.4-10.2); Carbon Dioxide 28 mmol/L (22-29); Chloride 104 mmol/L (96-108); Cholesterol 157 mg/dL (<200); Estimated Glomerular Filt Rate > 60; Glucose Fasting 87 mg/dL (60-99); HDL Cholesterol 38 mg/dL (>40); LDL Cholesterol Calculated 110 mg/dL (<100); Potassium 4.2 mmol/L (3.3-5.1); Sodium 140 mmol/L (135-145); Total Protein 6.7 g/dL (6.5-8.0); Triglycerides 46 mg/dL (<150)
[2025-03-04 13:14] LABS: TSH reflex Free T4 2.35 uIU/mL (0.32-4.0)
[2025-03-04 14:32] LABS: Appearance Urine Clear; Color Urine Dark Yellow; Glucose Urine UA Negative (Negative); Leukocyte Esterase Urine Negative (Negative); Nitrite Urine Negative (Negative); Specific Gravity - Urine >= 1.030 (1.005-1.025); Urine Blood Negative (Negative); Urine Ketones 40 mg/dL (Negative); Urine Protein Negative (Neg-Trace)
[2025-03-04 15:08] LABS: Creatinine Urine 324.29 mg/dL; Microalbum/Creatinine Ratio Ur 5.2 ug/mg cr (<30)
== END 2025-03-04 09:09 | disposition home or self-care (01) ==
LOC: HO.WFDLDS 09:08
PROVIDERS: Visit Provider Family Medicine
DX: Z00.00 Encounter for general adult medical examination without abnormal findings (principal); I10 Essential (primary) hypertension; R73.01 Impaired fasting glucose
CPT/HCPCS: 36415; 80053; 80061; 81003; 82043; 82570; 83036; 84443; 85025

== ENCOUNTER 2025-03-07 10:29 | Outpatient (AMB) | payer OTHER, SELFPAY ==
--- NOTE | 2025-03-07 10:40 | MHC.PC.OV ---
Vital Signs 03/07/25 10:44 Height 5 ft 5 in Weight 210 lb 6 oz BMI 35.0 BP 118/62 Blood Pressure Location Lt brachial Position Sitting Respiration 16 Pulse 70 Pulse Source Pulse Oximeter Temp 97.8 F Temp Source Oral Pulse Oximetry (%) 98 Oxygen Delivery Method Room Air Intake Visit Reasons: f/u labs, fatigue Intake Note: patient is scheduled for follow-up for labs patient is experiencing hard sleeping and having some discomfort in hand such tanginess in fingers. Allergies No Known Allergies Allergy (Verified 03/07/25 10:42) Medication List - Last Reconciled 03/07/25 by Eb Preston MD No Known Home Meds Tobacco use date assessed: 03/07/25 Dental Screening Dental Screen Date: 03/07/25 Did you have a dental visit in the last 12 months?: Yes Did you have a dental problem in the last 6 months where you did not have access to dental care?: No Was dental information given to patient?: No HPI f/u labs, fatigue HPI Details 39 y/o male presents to f/u fatigue, weight as well as palpitations. Pt had noted interest in GLP 1 medication for weight loss last office visit. Labs drawn 03/04/25. Reviewed labs with pt. A1c 5.3%. Triglycerides 46. TC 157. LDL 110. HDL low at 38. TSH 2.35. Liver enzymes improved. Now within normal range. Holter monitor 02/13/25: Total monitoring time 2 days. Underlying rhythm is sinus with an average rate of 79/Min. Rare supraventricular ectopy. Rare ventricular ectopy. No significant pauses or high-grade AV blocks. Patient diary with symptoms of stabbing in chest. Correlates with sinus rhythm. [facility] Medical History (Updated 03/07/25 @ 11:21 by Tavares Garcia) Anxiety Palpitations Surgical History (Updated 03/12/24 @ 15:07 by Rhona Cole CMA) S/P tonsillectomy Family History (Updated 07/16/24 @ 12:10 by Sal Mehta MA) Mother Thyroid disease Father Alcoholism Substance abuse Maternal Grandfather Diabetes Social History (Updated 07/16/24 @ 12:13 by Sal Mehta MA) Household Members: None Both parents involved: No Caregiver staying overnight: No Housing: Apartment Are you a primary hourly caregiver to a significant other at home: No Do you presently have visiting nurse or other home services: No 75 years or older and lives alone: No Alcohol intake: never Patient Tobacco Use Status: Never used Tobacco e-Cigarette/Vaping Use: Never Used service: No Current occupational status: employed Cognitive needs: No Hearing needs: No Vision needs: No Questionnaire Thrive Questionnaire Date Thrive assessed: 01/24/25 I am a: Patient What is your living situation today?: I choose not to answer this question Within the past 12 months, did the food you bought not last and you didn't have the money to get more?: I choose not to answer this question Within the past 12 months, did you worry whether your food would run out before you got money to buy more?: I choose not to answer this question Do you have trouble paying for medicines?: I choose not to answer this question Do you have trouble getting transportation to medical appointments?: I choose not to answer this question Do you have trouble paying your heating and electricity bill?: I choose not to answer this question Do you have trouble taking care of your child, family member or friend?: I choose not to answer this question Do you have trouble with day-to-day activities such as bathing, preparing meals, shopping, managing finances, etc.?: I choose not to answer this question Are you currently unemployed and looking for a job?: I choose not to answer this question Are you interested in more education?: I choose not to answer this question Please select the resources that you would like help with: None Currently or been in a relationship where the following occur: I choose not to answer THRIVE Score: 0 BROOKE-7 AMB Questionnaire BROOKE-7 Date BROOKE - 7 assessed: 03/07/25 Source: Developed by Drs. Geraldo Dyson, Aislinn Mcarthur, Fuentes Tipton and colleagues, with an educational jerald from [employer]. Review of Systems Const Denies chills, Denies fatigue, Denies fever(s), Denies headache(s) and Denies weakness ENT Denies dizziness and Denies headache(s) Card Denies dyspnea Resp Denies cough, Denies dyspnea, Denies wheezing and Denies other (shortness of breath) Musc Denies numbness and Denies tingling Neuro Denies dizziness, Denies headache(s), Denies numbness, Denies tingling and Denies weakness Psych Denies anxiety and Denies depression Endo Denies fatigue Aller/Immun Denies wheezing Physical exam (Primary Care) Vital Signs: Last Vital Signs Temp 97.8 F 03/07/25 10:44 Pulse 70 03/07/25 10:44 Resp 16 03/07/25 10:44 BP 118/62 03/07/25 10:44 Pulse Ox 98 03/07/25 10:44 Oxygen Delivery Method Room Air 03/07/25 10:44 BMI result Body Mass Index 35.0 Tobacco/Smoking Status: Tobacco use Status Tobacco use date assessed 03/07/25 03/07/25 10:51 Patient Tobacco Use Status Never used Tobacco 03/07/25 10:51 e-Cigarette/Vaping Use Never Used 03/07/25 10:51 Thrive Assessment: Date of Thrive Assessment Date Thrive assessed 01/24/25 03/07/25 10:51 Currently or been in a relationship where the following occur: I choose not to answer Const General: well developed; No acute distress Nutritional Appearance: well nourished Orientation/consciousness: patient oriented x3 [facility] Head: Yes normocephalic and Yes atraumatic Eyes General: appearance normal, both eyes and all related structures Pupils: Equal, round and reactive pupils present EOM: EOMs intact bilaterally Resp Effort & Inspection: normal respiratory effort Neuro General: patient oriented x3 and gait normal Cranial nerves: Yes Equal, round and reactive pupils present Psych Affect: normal affect Coding Level of Care Code Est Pt Level 4 (25617) Diagnoses Palpitations R00.2 Chronic fatigue R53.82 Fatigue type: chronic, unspecified Sleep apnea G47.30 Severe obesity (BMI 35.0-39.9) with comorbidity E66.01 Paresthesia R20.2 Counseling on other sexually transmitted diseases Z70.8 Assessment & Plan Assessment & Plan (1) Palpitations: Code(s): R00.2 - Palpitations Category: Medical Plan: Holter?monitor?test?was?normal?and Recent?EKG?normal Reassured?patient (2) Fatigue: Code(s): R53.83 - Other fatigue Category: Medical Qualifiers: Fatigue type: chronic, unspecified Qualified Code(s): R53.82 - Chronic fatigue, unspecified Plan: Ongoing?fatigue?and?difficulty?with?sleep. Hypersomnia He?has?an?upcoming?appointment?with?sleep?medicine Follow-up?with?sleep?medicine. (3) Sleep apnea: Code(s): G47.30 - Sleep apnea, unspecified Category: Medical Plan: As?above,?he?has?an?appointment?with?sleep?medicine (4) Severe obesity (BMI 35.0-39.9) with comorbidity: Comment: with HLD and fatty liver bmi > 35 Code(s): E66.01 - Morbid (severe) obesity due to excess calories Category: Medical Plan: Patient?called?his?insurance?and?they?say?they?cover?Zepbound?with?a?prior?authorization We?discussed?that?I?will?send?this?and?prior?authorization?but?that?this?not?always?mean?his?insurance?will?agree?to?pay?for?it. (5) Paresthesia: Code(s): R20.2 - Paresthesia of skin Category: Medical Plan: Likely?secondary?to?sleep?apnea Will?discuss?at?next?visit?after?his?sleep?study (6) Counseling on other sexually transmitted diseases: Code(s): Z70.8 - Other sex counseling Category: Medical Plan: Advised?he?discuss?with?partners Can?use?valacyclovir?as?needed Barrier?methods?advised Medications: New tirzepatide (weight loss) (Zepbound) for 4 weeks 2.5 mg (0.5 mL) subcut QWEEK 28 days 2 mL 2RF E66.01 - Morbid (severe) obesity due to excess calories, G47.30 - Sleep apnea, unspecified
[2025-03-07 10:44] VITALS: BP 118/62; PULSE 70; RESP 16; TEMP 36.6; O2SAT 98; BMI 35.0
== END 2025-03-07 11:30 | disposition home or self-care (01) ==
LOC: HO.HMCFM 10:29
PROVIDERS: PCP Family Medicine; Visit Provider Family Medicine
DX: R00.2 Palpitations (principal); R53.82 Chronic fatigue, unspecified; E66.01 Morbid (severe) obesity due to excess calories; Z68.35 Body mass index [BMI] 35.0-35.9, adult; G47.30 Sleep apnea, unspecified; R20.2 Paresthesia of skin; Z70.8 Other sex counseling

== ENCOUNTER → 2025-03-07 10:29 | Outpatient (BNVA) | payer OTHER, SELFPAY | PROVIDERS: PCP Family Medicine; Visit Provider Family Medicine | DX: R53.83 Other fatigue (principal); R00.2 Palpitations; G47.30 Sleep apnea, unspecified; E66.01 Morbid (severe) obesity due to excess calories; R20.2 Paresthesia of skin; Z70.8 Other sex counseling; Z68.35 Body mass index [BMI] 35.0-35.9, adult | CPT/HCPCS: 99212 ==

== ENCOUNTER 2025-04-24 09:43 | Outpatient (AMB) | payer OTHER, SELFPAY ==
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
[2025-04-24 10:01] VITALS: BP 110/70; PULSE 88; RESP 16; TEMP 36.6; O2SAT 98; BMI 33.0
== END 2025-04-24 10:21 | disposition home or self-care (01) ==
PROVIDERS: PCP Family Medicine; Visit Provider Family Medicine
DX: M54.50 Low back pain, unspecified (principal); V89.2XXA Person injured in unspecified motor-vehicle accident, traffic, initial encounter

== ENCOUNTER 2025-04-24 09:43 | Outpatient (REF) | payer OTHER, SELFPAY ==
--- NOTE | ~2025-04-24 | XR_ITS ---
EXAMINATION: XR LUMBOSACRAL SPINE CLINICAL INFORMATION: M54.50 - Low back pain, unspecified COMPARISON: None available. TECHNIQUE: Three views of the lumbosacral spine. FINDINGS: There are 5 nonrib-bearing lumbar segments. SI joints are symmetrical. Calcifications with central lucency are present in the pelvis likely represent phleboliths. One of the calcifications is moderate sized on the left. There is straightening of lumbar lordosis. Vertebral alignment is preserved otherwise. XR/XR lumbar spine 2-3V IMPRESSION: Nonspecific straightening of lumbar lordosis. Otherwise, unremarkable lumbar spine. Electronically signed by: Armin Boyd MD 04/24/2025 11:28 AM EDT
== END 2025-04-24 09:44 | disposition home or self-care (01) ==
LOC: HO.HMGCX 09:43
PROVIDERS: PCP Family Medicine; Visit Provider Family Medicine
DX: M54.50 Low back pain, unspecified (principal); V89.2XXA Person injured in unspecified motor-vehicle accident, traffic, initial encounter
CPT/HCPCS: 72100

== ENCOUNTER → 2025-04-24 11:12 | Outpatient (BNV) | payer OTHER, SELFPAY | PROVIDERS: PCP Family Medicine; Visit Provider Radiology Diagnostic Radiology | DX: M54.50 Low back pain, unspecified (principal) | CPT/HCPCS: 72100 ==

== ENCOUNTER 2025-05-23 09:33 | Outpatient (AMB) | payer OTHER, SELFPAY ==
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
[2025-05-23 09:57] VITALS: BP 120/80; PULSE 75; RESP 16; TEMP 36.8; O2SAT 98; BMI 32.5
== END 2025-05-23 10:56 | disposition home or self-care (01) ==
LOC: HO.HMCFM 09:34
PROVIDERS: PCP Family Medicine; Visit Provider Family Medicine
DX: M54.50 Low back pain, unspecified (principal); M54.2 Cervicalgia; B00.9 Herpesviral infection, unspecified

== ENCOUNTER → 2025-05-23 09:33 | Outpatient (BNVA) | payer OTHER, SELFPAY | PROVIDERS: PCP Family Medicine; Visit Provider Family Medicine | DX: M54.2 Cervicalgia (principal); M54.50 Low back pain, unspecified; B00.9 Herpesviral infection, unspecified | CPT/HCPCS: 99212 ==

== ENCOUNTER 2025-07-30 10:54 | Outpatient (RCR) | payer OTHER, SELFPAY ==
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
--- NOTE | 2025-07-30 13:53 | MHC.PT.DC ---
[facility] [place] Office [place] Office [place] Office [address] Eda Acosta [address] [phone] F: [phone] F: [phone] F: [phone] F: [phone] Physical Therapy Discharge Report Diagnosis: Low back pain, unspecified Date of Surgery: n/a Date of Evaluation: 06/05/25 Date of Discharge: 07/30/25 Treatments to Date: 7 Cancellations to Date: No Shows to Date: Discharge Status: Improved Function Patient Elected to Stop Discharge Summary: Pt arrived for his last scheduled appointment today. He reports he is feeling perfect. He denied any pain or LE radicular symptoms. I offered him to review his HEP today, and he politely declined, therefore todays visit was cancelled. I discussed the importance of staying compliant with HEP and pt verbalized understanding. I offered to print him a copy of his HEP and he reports he already has one. He is being D/C from skilled PT today. No further questions or concerns reported Electronically signed by: Vanessa Lewis, PT, DPT Please sign and return to therapist. Thank you for your referral.
== END 2025-07-30 13:53 | disposition home or self-care (01) ==
LOC: HO.PT 10:54
PROVIDERS: PCP Family Medicine; Visit Provider Family Medicine
DX: M54.50 Low back pain, unspecified (principal)
CPT/HCPCS: 97110; 97140; 97161; 97530